=== PATIENT | female | born 1955 | race Caucasian/White ===

== ENCOUNTER → 2022-05-14 | Day surgery (SDC) | payer MEDICARE, OTHER ==
[~2022-05-14] MED LIST: ATENOLOL25 MG PO; CHROMIUM PICO200 MC1 PO; CINNAMON PLUS1 EACH PO; CLARITIN10 M2 PO; COD LIVER OIL; FLUTICASONE; LOW DOSE ASPIRI81 MG PO; MAGNESIUM250 M1 PO; PROBIOTIC ACIDOPHILU; VITAMIN C1000 MG PO; VITAMIN D; ZINC50 M1 PO
== END | disposition home or self-care (01) ==
LOC: OR 06:16
DX: K43.0 Incisional hernia with obstruction, without gangrene (principal); K21.9 Gastro-esophageal reflux disease without esophagitis; I10 Essential (primary) hypertension; E78.00 Pure hypercholesterolemia, unspecified; E11.9 Type 2 diabetes mellitus without complications; Z87.891 Personal history of nicotine dependence; Z88.5 Allergy status to narcotic agent; Z88.2 Allergy status to sulfonamides; Z79.82 Long term (current) use of aspirin; Z79.899 Other long term (current) drug therapy
CPT/HCPCS: J0690; J1100; J2001; J2250; J2370; J2405; J2704; J2710; J3010